=== PATIENT | male | born 1970 | race Asian ===

== ENCOUNTER 2017-07-20 08:36 | Outpatient (CLI) | payer OTHER ==
--- NOTE | 2017-07-20 10:33 | RAD ---
AP PELVIS 1 VIEW: HISTORY: A 47-year-old male with lower back pain and right-sided pelvis and hip pain. FINDINGS: No fracture, dislocation, or other acute process. IMPRESSION: Unremarkable AP pelvis. POS: C
--- NOTE | 2017-07-20 11:06 | RAD ---
LUMBAR SPINE RADIOGRAPHS 2 VIEWS: INDICATION: Low back pain, radiculopathy (M54.16). FINDINGS: There is mild multilevel degenerative change without compression fracture or subluxation. Disk spac e heights are relatively well preserved. IMPRESSION: No acute compression of the lumbar spine. POS: [facility]
== END 2017-07-20 08:37 | disposition home or self-care (01) ==
LOC: SCSRAD 08:36
PROVIDERS: ATTEND Internal Medicine
DX: M54.16 Radiculopathy, lumbar region (principal)
CPT/HCPCS: 72100; 72170

== ENCOUNTER 2019-11-16 09:25 | Outpatient (CLI) | payer OTHER ==
--- NOTE | 2019-11-16 09:48 | RAD ---
PA AND LATERAL VIEWS CHEST: HISTORY: Cough. FINDINGS: The cardiomediastinum is normal. The lungs are expanded and clear. The bony thorax is normal. IMPRESSION: Normal exam. POS: [facility]
== END 2019-11-16 09:26 | disposition home or self-care (01) ==
LOC: BICRAD 09:25
PROVIDERS: ATTEND Internal Medicine
DX: R05 Cough (principal)
CPT/HCPCS: 71046

== ENCOUNTER 2021-07-19 08:06 | Outpatient (CLI) | payer OTHER | END 2021-07-19 08:07 | disposition home or self-care (01) | LOC: SCSRAD 08:06 | PROVIDERS: ATTEND Otolaryngology | DX: R05.3 Chronic cough (principal); R91.8 Other nonspecific abnormal finding of lung field | CPT/HCPCS: 71046 ==

== ENCOUNTER 2024-06-01 09:19 | Outpatient (CLI) | payer BC | END 2024-06-01 09:20 | disposition home or self-care (01) | LOC: BICRAD 09:19 | PROVIDERS: ATTEND Internal Medicine | DX: R05.9 Cough, unspecified (principal) | CPT/HCPCS: 71046 ==